=== PATIENT | female | born 1960 | race African-American/Black ===

== ENCOUNTER 2019-08-30 09:20 | Emergency (ER) | payer OTHER ==
[~2019-08-30] VITALS: Ht 160 cm; Wt 83.9 kg
[2019-08-30 09:39] VITALS: BP 172/87
[2019-08-30] MEDS ORDERED: KETOROLAC TROMETH 60MG/2ML VIAL IM ONE (10:15)
[2019-08-30] MEDS ORDERED: methylPREDNISolone SOD SUCC 125 MG/2 ML VL IM ONE (10:15)
== END 2019-08-30 10:28 | disposition home or self-care (01) ==
LOC: ER 09:20
DX: M10.9 Gout, unspecified (principal)
CPT/HCPCS: 73630; 96372; 99284; J1885; J2930

== ENCOUNTER 2022-04-13 12:04 | Emergency (ER) | payer OTHER ==
[~2022-04-13] VITALS: Ht 162.6 cm; Wt 79.5 kg
[2022-04-13] MEDS ORDERED: METH750T22 PO (13:09)
[2022-04-13] MEDS ORDERED: IBUP800T27 PO (13:09)
[2022-04-13] MEDS ORDERED: HYDROcodone-ACET 5/325MG TAB PO ONE (13:15)
[2022-04-13 13:18] VITALS: BP 166/65
== END 2022-04-13 13:20 | disposition home or self-care (01) ==
LOC: ER 12:04
DX: M75.32 Calcific tendinitis of left shoulder (principal); I10 Essential (primary) hypertension; Z79.1 Long term (current) use of non-steroidal anti-inflammatories (NSAID); Z79.899 Other long term (current) drug therapy
CPT/HCPCS: 73030